=== PATIENT | male | born 1970 | race Caucasian/White ===

== ENCOUNTER 2025-02-10 18:24 | Emergency (ER) | payer OTHER ==
[2025-02-10 18:43] VITALS: BP 111/68; PULSE 79; RESP 18; TEMP 97.8; BMI 25.7
[2025-02-10] MEDS ORDERED: KETOROLAC TROMETHAMINE 60 MG/2 ML VIAL ONE (19:48)
[2025-02-10] MEDS ORDERED: predniSONE 20 MG TABLET (UD) ONE (19:49)
[2025-02-10] MEDS: predniSONE 20 MG TABLET (UD) PO ONE (19:51)
[2025-02-10] MEDS: KETOROLAC TROMETHAMINE 60 MG/2 ML VIAL IM ONE (19:54)
== END 2025-02-10 23:38 | disposition home or self-care (01) ==
LOC: FER 18:24
PROC: 3E0233Z Introduction of Anti-inflammatory into Muscle, Percutaneous Approach (ICD-10-PCS; principal; 2025-02-10)
DX: S32.029A Unspecified fracture of second lumbar vertebra, initial encounter for closed fracture (principal); S32.039A Unspecified fracture of third lumbar vertebra, initial encounter for closed fracture; S32.049A Unspecified fracture of fourth lumbar vertebra, initial encounter for closed fracture; W17.89XA Other fall from one level to another, initial encounter; Y92.009 Unspecified place in unspecified non-institutional (private) residence as the place of occurrence of the external cause
CPT/HCPCS: 72131-TC; 99285-25